=== PATIENT | male | born 1955 | race Hispanic/Latino ===

== ENCOUNTER 2016-08-18 10:12 | Emergency (ER) | payer OTHER ==
[2016-08-18 10:17] VITALS: BMI 24.3
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
[2016-08-18] MEDS ORDERED: Lidocaine 5% Patch TD STA (11:04)
[2016-08-18] MEDS ORDERED: Lidocaine 5% Patch TD ONE (11:10)
[2016-08-18 12:20] VITALS: BP 132/77; PULSE 77; RESP 17; TEMP 98.2
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
[2016-08-18 14:42] VITALS: O2SAT 98
== END 2016-08-18 12:25 | disposition home or self-care (01) ==
LOC: C.ER 10:12 → SUPCPDRO 10:12 → C.ER 12:25
DX: S39.012A Strain of muscle, fascia and tendon of lower back, initial encounter (principal); S23.3XXA Sprain of ligaments of thoracic spine, initial encounter; V89.2XXA Person injured in unspecified motor-vehicle accident, traffic, initial encounter
CPT/HCPCS: 72070; 72100; 96372; 99283; J1885